=== PATIENT | female | born 1970 | race Hispanic/Latino ===

== ENCOUNTER 2017-02-12 12:43 | Day surgery (SDC) | payer MEDICAID ==
[2017-02-12] MEDS ORDERED: ANCEF/STERILE WATER 2 GM/20 ML IV NR (14:00)
--- NOTE | 2017-02-12 14:13 | Anesthesia Consultation ---
Anesthesia Consult and Med Hx Date of service: 02/12/17 - Airway Anesthetic Teeth Evaluation: Good ROM Head & Neck: Adequate Mental/Hyoid Distance: Adequate Mallampati Class: Class III Intubation Access Assessment: Possibly Difficult - Pulmonary Exam CTA: Yes - Cardiac Exam Cardiac Exam: RRR - Pre-Operative Health Status ASA Pre-Surgery Classification: ASA3 Proposed Anesthetic Plan: General - Pulmonary Hx Smoking: Yes (RECENTLY RESTARTED SMOKING) Hx Asthma: Yes (NO MEDS) Hx Sleep Apnea: No (KARISSA PRE SCREEN HIGH RISK) - Cardiovascular System Hx Hypertension: Yes (X 6 MONTHS) - Central Nervous System Hx Back Pain: Yes (L4-L5 HERNIATED "SLIPPED DISC") Hx Psychiatric Problems: Yes (Anxiety/Depression) - Hematic Hx Anemia: Yes - Other Systems Hx Cancer: No
--- NOTE | 2017-02-12 14:14 | Anesthesia Day of Surgery ---
Anesthesia Day of Surgery - Day of Surgery Patient Examined: Yes Patient H&P Reviewed: Yes Patient is NPO: Yes
[2017-02-12] MEDS ORDERED: ZOFRAN IV PRN (14:50)
[2017-02-12] MEDS ORDERED: DILAUDID IV PRN (14:50)
[2017-02-12] MEDS ORDERED: PERCOCET 5/325 PO PRN (14:50)
[2017-02-12] MEDS ORDERED: VERSED IV NR (15:00)
[2017-02-12] MEDS ORDERED: NACL 0.9% 1000 ML 1,000 ML IV SCH (15:00)
[2017-02-12] MEDS ORDERED: PEPCID IV NR (15:00)
--- NOTE | 2017-02-12 15:13 | Short Stay Summary ---
Short Stay Documentation Date of service: 02/12/17 - History H&P: obtained from office (hand written) - Allergies and Medications Current Medications: Allergies Iodinated Contrast- Oral and IV Dye Adverse Reaction (Verified 01/03/17 13:41) Rash STATES SHE ALSO PASSED OUT meperidine [From Demerol] Adverse Reaction (Verified 01/31/17 14:59) "PASSED OUT" Home Medications Medication Instructions Recorded Confirmed Last Taken Type ALPRAZolam [Alprazolam] 1 mg PO TID 01/03/17 02/12/17 02/11/17 History Amlodipine Besylate/Benazepril 1 each PO DAILY 01/03/17 02/12/17 02/11/17 History [Amlodipine-Benazepril 10-20 mg] Sertraline [Zoloft] 50 mg PO QDAY 01/03/17 02/12/17 02/11/17 History Active Medications Cefazolin Sodium (Ancef/Sterile Water 2 Gm/20 Ml) 2 gm IV PREOP NR Stop: 02/12/17 23:00 Famotidine (Pepcid) 20 mg IV PREOP NR Stop: 02/12/17 23:59 Last Admin: 02/12/17 14:48 Dose: 20 mg Hydromorphone HCl (Dilaudid) 0.5 mg IV Q10MIN PRN PRN Reason: Pain , Severe (7-10) Sodium Chloride (Nacl 0.9% 1000 Ml) 1,000 mls @ 100 mls/hr IV DIRECT VICENTE Last Admin: 02/12/17 14:45 Dose: 100 mls/hr Midazolam HCl (Versed) 2 mg IV PREOP NR Stop: 02/12/17 23:59 Last Admin: 02/12/17 14:52 Dose: 2 mg Ondansetron HCl (Zofran) 4 mg IV ONCE PRN PRN Reason: Nausea And Vomiting Oxycodone/Acetaminophen (Percocet 5/325) 1 tab PO ONCE PRN PRN Reason: Pain, Moderate (4-6) - Brief post op/procedure progress note Date of procedure: 02/12/17 Pre-op diagnosis: Renal stones; left ureteral mm stone Post-op diagnosis: same Procedure: cysto, stent pull, left urs sbe stone, left rpg Anesthesia: GETA Findings: min small uret frags Surgeon: LEYLA MAYBERRY Estimated blood loss: none Pathology: none Condition: stable - Hospital course Hospital course: orpacuhome - Disposition Condition at discharge: Good Disposition: DC-01 TO HOME OR SELFCARE Short Stay Discharge Plan Activity: advance as tolerated Diet: advance as tolerated Follow up with: LEYLA MAYBERRY MD [Staff Physician] - 7 Days Prescriptions: HYDROcodone/APAP 5-325 [[place] 5-325 mg TAB] 1 each PO Q6HR PRN #20 tablet PRN Reason: Pain Sulfamethoxazole/Trimethoprim [Bactrim DS TAB] 1 each PO BID #10 tablet
[2017-02-12] MEDS ORDERED: DIPRIVAN 10 MG/ML IV ONE (15:22)
[2017-02-12] MEDS ORDERED: DILAUDID ONE (15:22)
[2017-02-12] MEDS ORDERED: XYLOCAINE MPF 2% ONE (15:49)
[2017-02-12] MEDS ORDERED: ZOFRAN ONE (15:50)
[2017-02-12] MEDS ORDERED: DECADRON ONE (15:52)
--- NOTE | 2017-02-12 16:50 | Post Anesthesia Evaluation ---
- Post Anesthesia Evaluation Patient Participated: Yes Airway Patent: Yes Stable Respiratory Function: Yes Temp > 96.8F: Yes Pain Manageable: Yes Adequeate Hydration: Yes Anesthesia Complications: No
[2017-02-12 17:51] VITALS: BP 119/76
--- NOTE | 2017-02-14 07:48 | Fluoroscopy Report ---
FLUOROSCOPY RETROGRADE UROGRAPHY History: Left ureteral calculi. Findings: Fluoroscopy was provided by radiology during retrograde urography by urology. 7 fluoroscopic images were captured which demonstrates removal of a left ureteral stent and a left ureteral stone per the operative notes. Please correlate with the procedural report. Impression: Left ureteral stone removal as described.
--- NOTE | 2017-04-05 11:42 | Operative Report ---
PREOPERATIVE DIAGNOSIS: Left ureteral 15-20 mm stone. POSTOPERATIVE DIAGNOSIS: Left ureteral 15-20 mm stone. PROCEDURE: Cystoscopy, left ureteroscopy, stone basket extraction, ____ left RPG, left stent pull. ANESTHESIA: General. FINDINGS: Some small stone fragments in the ureter. SURGEON: Frederic Sepulveda MD. ESTIMATED BLOOD LOSS: None. PATHOLOGY: None. CONDITION: Stable. IMPLANTS: None. CLINICAL INDICATIONS: The patient counseled RCBA, antibiotics, SCDs, poor toleration of pain. The patient had a massive left distal ureteral stone with suspected residual fragments and significant trauma due to the stone, time duration of stone, and the amount of fragmentation required, was elected to do this as staged procedure to reevaluate and remove residual fragments with concern some would be embedded in the wall due to the size of the stone. DESCRIPTION OF PROCEDURE: The patient was transferred to the OR suite in the supine position, anesthesia, dorsal lithotomy, prepped and draped in the standard fashion. A 22-Amharic scope passed. Glidewire passed adjacent to the left stent. Stent pulled out. Ureteroscope passed up the ureter. The ureter was seen to be adequately intact. There was some small stone debris throughout the ureter. These were grasped with graspers and pulled out and dropped into the bladder. We flushed the entire ureter, scope passed up to the proximal ureter. No significant residual stones. Scope was slowly withdrawn. There were some stones, small fragments embedded into the wall of the ureter. These were grasped, manipulated, pulled out, and dropped into the bladder. The ureter seemed to be clear at this point, wire backloaded on the cystoscope. The ureter did seem to be adequately and open very well and good. There were no signs of any significant trauma at this point and healed well and was of good caliber. It was elected due to the patient's pain and desires to leave the stent out and she had been counseled on risks and understood, desired to have the stent removed and left out at this time, understands risks of chronic stricturing, obstruction and loss of function and infection, but visualization at this time felt that it did seem to be adequately safe due to the adequate caliber of the ureter, minimal trauma during this procedure, and good healing. The stent was left out. At this point, the patient was awakened and transferred to PACU in good and stable condition. Exam under anesthesia, no palpable ____ masses. JOB# [id number] ATS/NTS
== END 2017-02-12 12:44 | disposition home or self-care (01) ==
LOC: OR 12:43
PROVIDERS: ATTEND Urology
DX: N20.2 Calculus of kidney with calculus of ureter (principal); I10 Essential (primary) hypertension; J45.909 Unspecified asthma, uncomplicated; F17.200 Nicotine dependence, unspecified, uncomplicated; M51.26 Other intervertebral disc displacement, lumbar region; Z88.5 Allergy status to narcotic agent; Z91.041 Radiographic dye allergy status; Z87.442 Personal history of urinary calculi
CPT/HCPCS: 52320; 74420; C1769; J0690; J1100; J1170; J2250; J2405; J2704; J7030; Q9967

== ENCOUNTER 2017-06-13 16:41 | Emergency (ER) | payer MEDICAID ==
[2017-06-13 17:06] VITALS: BP 126/89
[2017-06-13] MEDS ORDERED: PERCOCET 5/325 PO ONE (20:10)
--- NOTE | 2017-06-13 21:14 | Cat Scan Report ---
FINAL REPORT PROCEDURE: CT ABDOMEN PELVIS WO CON TECHNIQUE: Computerized axial tomography of the abdomen and pelvis was performed without intravenous contrast. This study is performed without intravascular contrast material and its sensitivity for abdominal and pelvic pathology, including neoplasms, inflammation, abscess, free fluid, thrombosis, arterial dissection and infarction, is reduced compared with a contrast enhanced study. HISTORY: abdominal pain and flank pain COMPARISON: No prior studies are available for comparison. FINDINGS: Multiple 3 millimeter calcified subpleural nodules are noted in bilateral lower lobes most likely representing old healed granulomatous disease. Liver, spleen, and right adrenal gland are within normal limits. Left adrenal demonstrates a hypodense nodule measuring 1.2 centimeters. Left renal parenchyma is atrophic with multiple nonobstructive calculi largest measuring vines millimeters located in the lower pole. Left ureter is mildly dilated throughout its length without any evidence of definite obstructive pathology. There is compensatory hypertrophy of right kidney which demonstrates multiple small calcific densities involving the permits. 7 millimeter nonobstructive calculus is noted in the lower pole right kidney. There is focal scarring of the lower pole right kidney. Right ureter is unremarkable. Urinary bladder is partially filled with normal outlines. Aorta is of normal caliber. There is no free fluid or free air. Gallbladder is unremarkable. Small bowel loops are within normal limits moderate degree residual stool is noted. Appendix is normal. Degenerative changes are noted at L4-5. Vertebral height is normal. 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 Left ureter is mildly dilated without any definite obstructive pathology. A distal ureteral stricture cannot be excluded. A hypodense nodule in the left adrenal most likely represents adenoma..
--- NOTE | 2017-06-13 21:32 | Emergency Department Report ---
ED General Adult HPI - General Chief complaint: Abdominal Pain Stated complaint: ABD PAIN, EXTENSIVE HX Time Seen by Provider: 06/13/17 21:26 Source: patient Mode of arrival: Ambulatory Limitations: No Limitations - History of Present Illness Initial comments: Patient is a 46-year-old female past medical history of chronic pain who presents with abdominal pain. Patient states pains are gone for several weeks. He's been here for ovarian pain and urethral pain in the past. Patient denies any nausea or vomiting. Patient is requesting pain medication and anti- anxiety medication that she is out of. Patient has no shortness of breath no trauma to the belly. Pt is in no acute distress. - Related Data Home Medications Medication Instructions Recorded Confirmed Last Taken ALPRAZolam [Alprazolam] 1 mg PO TID 01/03/17 02/12/17 02/11/17 Amlodipine Besylate/Benazepril 1 each PO DAILY 01/03/17 02/12/17 02/11/17 [Amlodipine-Benazepril 10-20 mg] Sertraline [Zoloft] 50 mg PO QDAY 01/03/17 02/12/17 02/11/17 Previous Rx's Medication Instructions Recorded Last Taken Type HYDROcodone/APAP 5-325 [[place] 1 each PO Q6HR PRN #20 tablet 02/12/17 Unknown Rx 5-325 mg TAB] Sulfamethoxazole/Trimethoprim 1 each PO BID #10 tablet 02/12/17 Unknown Rx [Bactrim DS TAB] Allergies Allergy/AdvReac Type Severity Reaction Status Date / Time Iodinated Contrast- Oral and AdvReac Rash Verified 01/03/17 13:41 IV Dye meperidine [From Demerol] AdvReac "PASSED Verified 01/31/17 14:59 OUT" ED Review of Systems ROS: Stated complaint: ABD PAIN, EXTENSIVE HX Other details as noted in HPI Constitutional: denies: chills, fever Eyes: denies: eye pain, eye discharge, vision change ENT: denies: ear pain, throat pain Respiratory: denies: cough, shortness of breath, wheezing Cardiovascular: denies: chest pain, palpitations Endocrine: no symptoms reported Gastrointestinal: abdominal pain. denies: nausea, diarrhea Genitourinary: denies: urgency, dysuria, discharge Musculoskeletal: denies: back pain, joint swelling, arthralgia Skin: denies: rash, lesions Neurological: denies: headache, weakness, paresthesias Psychiatric: denies: anxiety, depression Hematological/Lymphatic: denies: easy bleeding, easy bruising ED Past Medical Hx - Past Medical History Hx Hypertension: Yes (X 6 MONTHS) Hx Headaches / Migraines: Yes Hx Kidney Stones: Yes Hx Asthma: Yes (NO MEDS) Hx HIV: No Additional medical history: "slipped disc",ovarian cyst - Social History Smoking Status: Current Every Day Smoker Substance Use Type: None - Medications Home Medications: Home Medications Medication Instructions Recorded Confirmed Last Taken Type ALPRAZolam [Alprazolam] 1 mg PO TID 01/03/17 02/12/17 02/11/17 History Amlodipine Besylate/Benazepril 1 each PO DAILY 01/03/17 02/12/17 02/11/17 History [Amlodipine-Benazepril 10-20 mg] Sertraline [Zoloft] 50 mg PO QDAY 01/03/17 02/12/17 02/11/17 History HYDROcodone/APAP 5-325 [[place] 1 each PO Q6HR PRN #20 tablet 02/12/17 Unknown Rx 5-325 mg TAB] Sulfamethoxazole/Trimethoprim 1 each PO BID #10 tablet 02/12/17 Unknown Rx [Bactrim DS TAB] ED Physical Exam - General Limitations: No Limitations General appearance: alert, in no apparent distress - Head Head exam: Present: atraumatic, normocephalic - Eye Eye exam: Present: normal appearance - ENT ENT exam: Present: mucous membranes moist - Neck Neck exam: Present: normal inspection - Respiratory Respiratory exam: Present: normal lung sounds bilaterally. Absent: respiratory distress - Cardiovascular Cardiovascular Exam: Present: regular rate, normal rhythm. Absent: systolic murmur, diastolic murmur, rubs, gallop - GI/Abdominal GI/Abdominal exam: Present: soft, normal bowel sounds - Extremities Exam Extremities exam: Present: normal inspection - Back Exam Back exam: Present: normal inspection - Neurological Exam Neurological exam: Present: alert, oriented X3 - Psychiatric Psychiatric exam: Present: normal affect, normal mood - Skin Skin exam: Present: warm, dry, intact, normal color. Absent: rash ED Course Vital Signs 06/13/17 17:01 Temperature 98 F Pulse Rate 89 Respiratory 18 Rate Blood Pressure 126/89 O2 Sat by Pulse 98 Oximetry ED Medical Decision Making - Radiology Data Radiology results: report reviewed, image reviewed CT Abd: Shows Atrophic left kidney and hypertrophic right kidney - Medical Decision Making Cdx: Abdominal pain 2/2 chronic pain Ddx: Malingering, Renal colic, urethral stricture I will CT abdomen of abdomen. Patient is acting aggressive towards staff and making threats. Gave patient discharge papers. She states "I will maya you for not giving me my pain medication." Discussed with patient that she will have to f/u with her primary care doctor if she wants any narcotic medication. Critical care attestation.: If time is entered above; I have spent that time in minutes in the direct care of this critically ill patient, excluding procedure time. ED Disposition Clinical Impression: Abdominal pain Qualifiers: Abdominal location: unspecified location Qualified Code(s): R10.9 - Unspecified abdominal pain Disposition: DC-01 TO HOME OR SELFCARE Is pt being admited?: No Does the pt Need Aspirin: No Condition: Stable Instructions: Abdominal Pain (ED) Referrals: SAJAN WEATHERS MD [Primary Care Provider] - 3-5 Days
== END 2017-06-13 21:30 | disposition home or self-care (01) ==
LOC: ED 16:41
DX: R10.9 Unspecified abdominal pain (principal); I10 Essential (primary) hypertension; J45.909 Unspecified asthma, uncomplicated; F17.200 Nicotine dependence, unspecified, uncomplicated; Z87.442 Personal history of urinary calculi
CPT/HCPCS: 74176; 99283

== ENCOUNTER 2017-07-03 11:13 | Observation (INO) | payer MEDICAID ==
--- NOTE | 2017-07-01 12:42 | Anesthesia Consultation ---
Anesthesia Consult and Med Hx Date of service: 07/03/17 - Airway Anesthetic Teeth Evaluation: Poor ROM Head & Neck: Adequate Mental/Hyoid Distance: Adequate Mallampati Class: Class II Intubation Access Assessment: Good - Pulmonary Exam CTA: Yes - Cardiac Exam Cardiac Exam: No Murmur - Pre-Operative Health Status ASA Pre-Surgery Classification: ASA2 Proposed Anesthetic Plan: General Nerve Block: TAP - Pulmonary Hx Smoking: Yes Hx Asthma: Yes (NO MEDS) - Cardiovascular System Hx Hypertension: Yes - Central Nervous System Hx Back Pain: Yes (L4-L5 HERNIATED "SLIPPED DISC") Hx Psychiatric Problems: Yes - Hematic Hx Anemia: Yes - Other Systems Hx Cancer: No
[2017-07-01 12:53] LABS: Basophils % (Auto) 0.3 % (0.0-1.8); Eosinophils % (Auto) 0.3 % (0.0-4.3); Hematocrit 44.9 % (30.3-42.9); Lymphocytes # (Auto) 1.8 K/mm3 (1.2-5.4); Lymphocytes % (Auto) 12.8 % (13.4-35.0); Mean Corpuscular HGB Conc 34 % (30-34); Mean Corpuscular Hemoglobin 32 pg (28-32); Mean Corpuscular Volume 94 fl (79-97); Monocytes # (Auto) 0.5 K/mm3 (0.0-0.8); Monocytes % (Auto) 3.9 % (0.0-7.3); Platelet Count 363 K/mm3 (140-440); Red Blood Count 4.75 M/mm3 (3.65-5.03); Red Cell Distribution Width 13.9 % (13.2-15.2)
--- NOTE | 2017-07-03 11:53 | History and Physical Report ---
History of Present Illness Date of examination: 07/01/17 Date of admission: 07/03/2017 Chief complaint: Chronic pelvic pain History of present illness: 46-year-old 1-2 with a history of worsening chronic pelvic pain. The patient underwent a pelvic ultrasound with findings of a multiloculated right ovarian cyst measuring 5.0 cm. The patient has a history of a prior total abdominal hysterectomy. She is elected to undergo surgical management of her symptoms. Past History Past Medical History: hypertension, other (anxiety, depression; renal calculi; polycystic kidney disease) Past Surgical History: section, other (total abdominal hysterectomy) Social history: single, smoking - Obstetrical History : 4 Para: 2 Hx # Term Pregnancies: 1 Number of Pregnancies: 1 Spontaneous Abortions: 0 Induced : 2 Number of Living Children: 2 Medications and Allergies Allergies Allergy/AdvReac Type Severity Reaction Status Date / Time meperidine [From Demerol] Allergy "PASSED Verified 06/28/17 13:35 OUT" Iodinated Contrast- Oral and AdvReac Rash Verified 06/28/17 13:35 IV Dye Home Medications Medication Instructions Recorded Confirmed Last Taken Type ALPRAZolam [Alprazolam] 1 mg PO TID 01/03/17 07/01/17 02/11/17 History Amlodipine Besylate/Benazepril 1 each PO DAILY 01/03/17 07/01/17 02/11/17 History [Amlodipine-Benazepril 10-20 mg] Sertraline [Zoloft] 50 mg PO QDAY 01/03/17 07/01/17 02/11/17 History HYDROcodone/APAP 5-325 [[place] 1 each PO Q6HR PRN #20 tablet 02/12/17 07/01/17 Unknown Rx 5-325 mg TAB] Sulfamethoxazole/Trimethoprim 1 each PO BID #10 tablet 02/12/17 07/01/17 Unknown Rx [Bactrim DS TAB] Active Meds: Active Medications Famotidine (Pepcid) 20 mg PO PREOP NR Stop: 07/03/17 23:59 Lactated Ringer's (Lactated Ringers) 1,000 mls @ 100 mls/hr IV DIRECT VICENTE Midazolam HCl (Versed) 2 mg IV PREOP NR Stop: 07/03/17 23:59 Review of Systems All systems: negative Genitourinary: pelvic pain, no vaginal bleeding - Vital Signs Vital signs: Vital Signs Temp Pulse Resp BP 98.2 F 60 18 110/64 07/01/17 12:00 07/01/17 12:00 07/01/17 12:00 07/01/17 12:00 Temp Pulse Resp BP Pulse Ox 98.2 F 60 18 110/64 07/01/17 12:00 07/01/17 12:00 07/01/17 12:00 07/01/17 12:00 - Physical Exam Breasts: Positive: deferred Cardiovascular: Regular rate Lungs: Positive: Clear to auscultation Abdomen: Positive: normal appearance Results Result Diagrams: 07/01/17 12:05 All other labs normal. Assessment and Plan - Patient Problems (1) Adnexal mass Current Visit: Yes Status: Acute Plan to address problem: The patient is scheduled for robotic bilateral salpingo-oophorectomy, lysis of adhesions and other indicated procedures (2) Chronic pelvic pain in female Current Visit: Yes Status: Acute
[2017-07-03] MEDS ORDERED: DILAUDID ONE (11:58)
[2017-07-03] MEDS ORDERED: DIPRIVAN 10 MG/ML IV ONE (11:58)
[2017-07-03] MEDS ORDERED: PEPCID PO NR (12:00)
[2017-07-03] MEDS ORDERED: ANCEF/STERILE WATER 2 GM/20 ML 2 GM/20 ML SYRINGE IV NR (12:00)
[2017-07-03] MEDS ORDERED: VERSED IV NR (12:00)
[2017-07-03] MEDS ORDERED: LACTATED RINGERS 1,000 ML IV SCH (12:00)
[2017-07-03] MEDS ORDERED: XYLOCAINE MPF 2% ONE (12:01)
[2017-07-03] MEDS ORDERED: ZEMURON IV ONE (12:01)
[2017-07-03 12:29] LABS: BUN/Creatinine Ratio 31; Blood Urea Nitrogen 28 mg/dL (7-17); Calcium 8.5 mg/dL (8.4-10.2); Hemolysis Index 7
[2017-07-03] MEDS ORDERED: GELFOAM POWDER 1GM MM ONE (12:51)
[2017-07-03] MEDS ORDERED: NEOSPORIN GU IR ONE (12:52)
[2017-07-03] MEDS ORDERED: THROMBIN (BOVINE) TP ONE (12:52)
--- NOTE | 2017-07-03 12:57 | Anesthesia Day of Surgery ---
Anesthesia Day of Surgery - Day of Surgery Patient Examined: Yes Patient H&P Reviewed: Yes Patient is NPO: Yes Beta Blockers: No Cardiac Clearance: Yes Pulmonary Clearance: Yes Juan David's Test: N/A
[2017-07-03] MEDS ORDERED: MARCAINE 0.25% INFILTRATI ONE ×2 (12:58→13:30)
[2017-07-03] MEDS ORDERED: XYLOCAINE 1% 20 mL ONE (12:58)
[2017-07-03] MEDS ORDERED: DECADRON ONE (14:31)
[2017-07-03] MEDS ORDERED: NEOSTIGMINE ONE (14:31)
[2017-07-03] MEDS ORDERED: ZOFRAN ONE (14:31)
[2017-07-03] MEDS ORDERED: ROBINUL ONE (14:31)
[2017-07-03] MEDS ORDERED: NARCAN 0.4 MG/1 ML IV PRN (14:40)
[2017-07-03] MEDS ORDERED: TYLENOL PO PRN (14:41)
[2017-07-03] MEDS ORDERED: MILK OF MAGNESIA PO PRN (14:41)
[2017-07-03] MEDS ORDERED: ZOFRAN IV PRN ×2 (14:41→15:25)
[2017-07-03] MEDS ORDERED: PERCOCET 5/325 PO PRN (14:41)
[2017-07-03] MEDS ORDERED: MOTRIN PO PRN (14:41)
[2017-07-03] MEDS ORDERED: LACTATED RINGERS 1,000 ML ONE (14:49)
--- NOTE | 2017-07-03 14:51 | Operative Report ---
Operative Report Operative Report: Date of surgery: 07/03/2017 Preoperative diagnoses: Chronic pelvic pain; right adnexal mass Postoperative diagnoses: Same as above; pelvic adhesive disease Procedure: Robotic-assisted bilateral salpingo-oophorectomy; lysis of adhesions Surgeon: Jazmin Argueta M.D. Outlet Manager: Milan Cosby Anesthesia: Gen. endotracheal anesthesia Estimated blood loss: Minimal Pathology: Bilateral tubes and ovaries Indication: 46-year-old with a history of chronic pelvic pain. Pelvic ultrasound demonstrated findings of a multi loculated right adnexal cyst. Procedure: The patient was taken to the operating room and given general endotracheal anesthesia without complication. She is prepped and draped in a normal sterile fashion. A bivalve speculum was placed in the patient's vagina and a single- tooth tenaculum placed on the anterior lip of the cervix. The uterus was sounded with the uterine sound. A Eloquii uterine manipulator was placed in the bivalve speculum was then removed. Attention was then turned to the patient's abdomen where a millimeter supra umbilical skin incision was then made. A Veress needle was placed and peritoneal entry was verified water-filled syringe. Insufflation of the peritoneal cavity was performed with CO2 gas. The 12 mm trocar was then placed under direct visualization. An additional 8 mm trocar was placed on the patient's left and right lateral side just opposite of the supraumbilical trocar. An additional 10 mm right lateral trocar was then placed as the accessory port. The patient was then placed in steep Trendelenburg. The da Jorgito robot was then engaged. A fenestrated forcep was placed in arm 2 and a monopolar scissors were placed in arm 1. The surgeon then transferred to the surgical console. General survey of the abdomen of pelvis from day old a surgically absent uterus. There were multiple omental adhesions to the anterior abdominal wall. The right adnexal was enlarged with findings of a right ovarian cyst. The right adnexa was densely adherent to the right pelvic sidewall as well as the left adnexa. The left adnexa demonstrated findings of an ovarian cyst. There are multiple bowel adhesions to the right adnexa. Extensive lysis of adhesions had to be performed in order to improve visualization. The right adnexa was isolated. The infundibulopelvic ligaments was coagulated and transected with the monopolar scissors and fenestrated bipolar forceps. The monopolar scissors were used in order to release the adhesions of the right adnexa to the right pelvic sidewall. Once the right adnexa was transected from the blood supply of the tube and ovary were placed in the Endo Catch bag. Attention was then turned to the left adnexa which was also densely adherent to the left pelvic sidewall. Again lysis of adhesions had to be performed in order to isolate the left adnexa. The infundibulopelvic ligament was coagulated and transected. The monopolar scissors were used in order to lyse the adhesions. The left adnexa was placed in Endo Catch bag and removed through the 10 mm port along with the right adnexa. Irrigation of the pelvis was performed. Erum was applied to the surgical sites. The supraumbilical 12 mm trocar site and 10 mm right lateral trocar sites were closed with the Robby Alvarado device. The skin was then reapproximated with 4 -0 Monocryl. The tissue was sent to pathology which included bilateral tubes and ovaries. The patient was then successfully extubated. She was then taken to the recovery room in stable condition. All sponge laps and needle counts were correct x2.
[2017-07-03] MEDS ORDERED: NACL 0.9% IR ONE (15:07)
[2017-07-03] MEDS: TORADOL IV SCH ×2 (15:35→22:05)
[2017-07-03] MEDS: DILAUDID IV PRN ×2 (15:40→15:56)
[2017-07-03] MEDS: MORPHINE PCA 30MG/30ML IV SCH (16:02)
[2017-07-03] MEDS ORDERED: SUBLIMAZE ONE (16:05)
[2017-07-03] MEDS ORDERED: SUBLIMAZE IV PRN (16:11)
--- NOTE | 2017-07-03 16:26 | Post Anesthesia Evaluation ---
- Post Anesthesia Evaluation Patient Participated: Yes Airway Patent: Yes Stable Respiratory Function: Yes Nausea/Vomiting: No Temp > 96.8F: Yes Pain Manageable: No (Pt on SACK CLEANING HAND, received opioids, Tylenol, Toradol, TAPS blocks) Adequeate Hydration: Yes Anesthesia Complications: Yes Block Receding Appropriately: No (performed just prior to PACU admission) Patient on Ventilator: No
[2017-07-03] MEDS: D5LR 1,000 ML IV SCH (20:37)
[2017-07-03] MEDS ORDERED: XANAX PO PRN (22:52)
[2017-07-04] MEDS: MORPHINE PCA 30MG/30ML IV SCH (01:46)
[2017-07-04] MEDS: TORADOL IV SCH ×2 (04:30→10:00)
[2017-07-04] MEDS: D5LR 1,000 ML IV SCH (06:26)
[2017-07-04 06:46] LABS: Hematocrit 33.2 % (30.3-42.9); Hemoglobin 11.4 gm/dl (10.1-14.3)
--- NOTE | 2017-07-04 08:17 | Progress Note ---
Assessment and Plan - Patient Problems (1) Adnexal mass Current Visit: Yes Status: Acute Plan to address problem: patient doing well discharge home (2) Chronic pelvic pain in female Current Visit: Yes Status: Acute Subjective - Subjective Date of service: 07/04/17 Interval history: Patient reports being able to void. Pain is better controlled. She is tolerating her diet. Patient reports: appetite normal, voiding normally, pain well controlled Objective - Vital Signs Latest vital signs: Vital Signs Temp Pulse Resp BP BP Pulse Ox 07/04/17 05:46 20 07/04/17 05:08 98.7 F 69 20 115/80 93 07/04/17 04:30 20 07/04/17 04:02 20 07/04/17 03:46 20 07/04/17 02:02 20 07/04/17 00:38 98.5 F 73 20 120/82 98 07/04/17 00:02 20 07/03/17 22:02 20 07/03/17 20:40 100 07/03/17 20:09 98.0 F 90 20 111/81 98 07/03/17 20:02 20 07/03/17 16:30 98.2 F 57 L 12 118/80 94 07/03/17 16:10 10 L 07/03/17 15:56 12 07/03/17 15:53 65 12 123/74 98 07/03/17 15:40 10 L 07/03/17 15:35 14 07/03/17 15:25 69 18 132/75 99 07/03/17 15:15 70 18 138/78 99 07/03/17 15:07 97.1 F L 72 18 135/80 99 07/03/17 12:19 98.6 F 90 18 107/65 96 07/03/17 11:25 98.6 F 90 18 107/65 96 Intake and Output 07/03/17 07/04/17 07/04/17 22:59 06:59 14:59 Intake Total 9750 1000 Output Total 225 Balance 9525 1000 Intake: IV 9750 1000 D5lr 1,000 ml @ 125 mls/ 1000 hr IV DIRECT VICENTE Rx#: [id number] Output: Urine 225 Other: Voiding Method Toilet Weight 72.575 kg - Exam Abdomen: Present: normal appearance, soft - Labs Labs: Abnormal lab results 07/03/17 Range/Units 12:00 Sodium 135 L (137-145) mmol/L BUN 28 H (7-17) mg/dL
--- NOTE | 2017-07-04 08:21 | Discharge Summary ---
Providers - Providers Date of Admission: 07/03/17 14:41 Date of discharge: 07/04/17 Attending physician: LAQUITA SWAN Primary care physician: SAJAN WEATHERS Hospitalization Reason for admission: other (Adnexal mass and chronic pelvic pain) Procedure: other (Robotic assisted BSO) Incision: normal Discharge diagnosis: other (Adnexal mass and chronic pelvic pain) Hospital course: Patient was admitted the day of surgery and underwent a robotic BSO. See operative note. Postoperative course unremarkable Condition at discharge: Good Disposition: DC-01 TO HOME OR SELFCARE - Discharge Diagnoses (1) Adnexal mass Status: Acute (2) Chronic pelvic pain in female Status: Acute Plan - Discharge Medications Prescriptions: Ibuprofen [Motrin] 800 mg PO Q8HR PRN #60 tablet PRN Reason: Pain Oxycodone HCl/Acetaminophen [Percocet 10/325 mg] 1 each PO Q6HR PRN #30 tablet PRN Reason: Pain - Provider Discharge Summary Activity: no heavy lifting 4 weeks, no strenuous exercise Diet: routine Instructions: routine Additional instructions: [] Smoking cessation referral if applicable(refer to patient education folder for contact #) [] Refer to [facility] Booklet Call your doctor immediately for: * Fever > 100.5 * Heavy vaginal bleeding ( >1 pad per hour) * Severe persistent headache * Shortness of breath * Reddened, hot, painful area to leg or breast * Drainage or odor from incision. * Keep incision clean and dry at all times and follow doctor's instructions regarding bathing/showering schedule followup in 4 weeks - Follow up plan
[2017-07-04 12:16] VITALS: BP 133/88
== END 2017-07-04 11:30 | disposition home or self-care (01) ==
LOC: OR 11:13 → OB 14:41
PROVIDERS: ADMIT Obstetrics & Gynecology; ATTEND Obstetrics & Gynecology
DX: R10.2 Pelvic and perineal pain (principal); G89.29 Other chronic pain; N73.6 Female pelvic peritoneal adhesions (postinfective); R19.09 Other intra-abdominal and pelvic swelling, mass and lump; I10 Essential (primary) hypertension; J45.909 Unspecified asthma, uncomplicated; M54.9 Dorsalgia, unspecified; Q61.3 Polycystic kidney, unspecified; F41.9 Anxiety disorder, unspecified; F32.9 Major depressive disorder, single episode, unspecified; F17.200 Nicotine dependence, unspecified, uncomplicated
CPT/HCPCS: 36415; 58661; 80048; 84703; 85014; 85018; 85025; 86850; 86900; 86901; 88305; 88307; 88313; 88342; 96374; 96375; 96376; A4217; G0378; J0690; J1100; J1170; J1885; J2250; J2270; J2405; J2704; J2710; J3010; J7120; J7121; S2900; 88341; A4649